=== PATIENT | male | born 1940 | race Two or more races ===

== ENCOUNTER 2017-07-21 10:32 | Inpatient (IN) | payer MEDICAID, OTHER ==
[~2017-07-21] VITALS: Ht 172.7 cm; Wt 77.0 kg
[2017-07-21] MEDS ORDERED: SODIUM CHLORIDE 0.9% 1,000 ML IV ONE (10:54)
[2017-07-21] MEDS ORDERED: ASPirin 81 mg TAB PO ONE (11:00)
[2017-07-21 11:14] LABS: Basophils # (auto) 0.1 uL; Basophils % (auto) 0.8 % (0.0-2.0); Eosinophils # (auto) 0.1 uL; Eosinophils % (auto) 0.8 % (0.0-7.0); Hematocrit 45.2 % (41.0-53.0); Hemoglobin 14.8 g/dL (13.5-17.5); Lymphocytes # (auto) 2.9 uL; Lymphocytes % (auto) 28.1 % (10.0-50.0); Mean Corpuscular Hgb Conc. 32.7 g/dL (32.0-36.0); Mean Corpuscular Volume 88.8 fL (80.0-100.0); Monocytes # (auto) 0.9 uL; Monocytes % (auto) 8.5 % (0.0-12.0); Neutrophils # (auto) 6.5 uL; Neutrophils % (auto) 61.8 % (37.0-80.0); Nucleated Red Blood Cells % 0.1 %; Platelet Count (auto) 220 10^3/uL (140-450); Red Blood Cells 5.08 10^6/uL (4.5-5.90); Red Cell Distribution Width 14.8 % (11.8-14.3); White Blood Cell 10.4 10^3/uL (4.4-10.8)
[2017-07-21 11:33] LABS: Alanine Aminotransferase 19 U/L (16-61); Albumin 3.5 g/dL (3.4-5.0); Anion Gap 7 (5-15); Aspartate Aminotransferase 22 U/L (15-37); BUN/Creatinine Ratio 14.4; Blood Urea Nitrogen 17 mg/dL (7-18); Calcium 8.6 mg/dL (8.5-10.1); Carbon Dioxide 26 mmol/L (21-32); Chloride 105 mmol/L (98-107); GFR African American 77 mL/min; GFR Non-African American 63 mL/min; Glucose 94 mg/dL (74-106); Magnesium 2.4 mg/dL (1.6-2.6); Potassium 4.6 mmol/L (3.5-5.1); Sodium 138 mmol/L (136-145)
[2017-07-21 11:35] LABS: INR 1.08 (0.9-1.15); Partial Thromboplastin Time 30.3 sec (22.64-33.71); Prothrombin Time 11.8 sec (9.37-12.3)
[2017-07-21 11:38] LABS: Alkaline Phosphatase 76 U/L (45-117); Bilirubin, Total 0.5 mg/dL (0.2-1.0); Total Protein 7.9 g/dL (6.4-8.2)
[2017-07-21] MEDS ORDERED: NITROGLYCERIN 0.4 MG SL TAB SL PRN ×2 (14:15)
[2017-07-21] MEDS ORDERED: LORazepam 0.5 MG TAB PO PRN (14:15)
[2017-07-21] MEDS ORDERED: MORPHINE SULFATE 4 MG/ML SYR/VIAL IV PRN ×2 (14:15)
[2017-07-21] MEDS ORDERED: ZOLPIDEM TARTRATE 5 MG TAB PO PRN (14:15)
[2017-07-21] MEDS ORDERED: ONDANSETRON HCL 4 MG/2 ML VIAL IV PRN (14:15)
[2017-07-21] MEDS ORDERED: ACETAMINOPHEN 325 MG TAB PO PRN (14:15)
[2017-07-21] MEDS ORDERED: ALUM & MAG HYDROX-SIMETH LIQ(MAALOX) 30 ML PO ONE (14:15)
[2017-07-21] MEDS: CARVEDILOL 3.125 MG TAB PO SCH ×2 (14:45→22:17)
[2017-07-21] MEDS: CLOPIDOGREL BISULFATE 75 MG TAB PO SCH (15:08)
[2017-07-21] MEDS: ENALAPRIL MALEATE 2.5 MG TAB PO SCH ×2 (15:08→22:18)
[2017-07-21 20:30] VITALS: BP 152/72
[2017-07-21 22:00] VITALS: BP 152/71
[2017-07-21] MEDS: SODIUM CHLOR 0.9% PF (SALINE LOCK) 10ML VIAL/SYR IV SCH (22:16)
[2017-07-21] MEDS: ATORVASTATIN 20 MG TAB PO SCH (22:17)
[2017-07-22] VITALS (7 sets, daily range): BP systolic 101–154; BP diastolic 65–73
[2017-07-22 05:44] LABS: Basophils # (auto) 0.1 uL; Basophils % (auto) 0.7 % (0.0-2.0); Eosinophils # (auto) 0.1 uL; Eosinophils % (auto) 1.6 % (0.0-7.0); Hematocrit 41.1 % (41.0-53.0); Hemoglobin 13.6 g/dL (13.5-17.5); Lymphocytes % (auto) 33.7 % (10.0-50.0); Mean Corpuscular Hemoglobin 29.5 pg (28.0-32.0); Mean Corpuscular Hgb Conc. 33.1 g/dL (32.0-36.0); Mean Corpuscular Volume 89.1 fL (80.0-100.0); Monocytes # (auto) 0.9 uL; Neutrophils # (auto) 4.9 uL; Nucleated Red Blood Cells % 0.1 %; Platelet Count (auto) 165 10^3/uL (140-450); Red Blood Cells 4.62 10^6/uL (4.5-5.90); Red Cell Distribution Width 14.5 % (11.8-14.3)
[2017-07-22] MEDS: SODIUM CHLOR 0.9% PF (SALINE LOCK) 10ML VIAL/SYR IV SCH ×3 (05:59→22:40)
[2017-07-22 06:27] LABS: Alanine Aminotransferase 15 U/L (16-61); Albumin 3.1 g/dL (3.4-5.0); Alkaline Phosphatase 69 U/L (45-117); Anion Gap 9 (5-15); Aspartate Aminotransferase 16 U/L (15-37); BUN/Creatinine Ratio 15.6; Bilirubin, Total 0.8 mg/dL (0.2-1.0); Blood Urea Nitrogen 19 mg/dL (7-18); Calcium 8.3 mg/dL (8.5-10.1); Carbon Dioxide 23 mmol/L (21-32); Chloride 107 mmol/L (98-107); Cholesterol 182 mg/dL (< 200); GFR African American 74 mL/min; GFR Non-African American 61 mL/min; Glucose 80 mg/dL (74-106); HDL Cholesterol 34 mg/dL (40-59); LDL Cholesterol 131 mg/dL (< 100); Magnesium 2.5 mg/dL (1.6-2.6); Potassium 3.9 mmol/L (3.5-5.1); Sodium 139 mmol/L (136-145); Total Protein 6.8 g/dL (6.4-8.2); Triglycerides 197 mg/dL (< 150)
[2017-07-22] MEDS: ASPirin 81 mg TAB PO SCH (11:16)
[2017-07-22] MEDS: CLOPIDOGREL BISULFATE 75 MG TAB PO SCH (11:18)
[2017-07-22] MEDS: CARVEDILOL 3.125 MG TAB PO SCH ×2 (11:18→22:34)
[2017-07-22] MEDS: ENALAPRIL MALEATE 2.5 MG TAB PO SCH ×2 (11:18→22:35)
[2017-07-22] MEDS: DOCUSATE SOD 100 MG CAP PO SCH (11:19)
[2017-07-22] MEDS ORDERED: ADENOSINE 65 MG in GIVE UN-DILUTED 0 ML IV ONE (14:30)
[2017-07-22 20:06] LABS: Urine Bacteria NONE SEEN /hpf (None Seen); Urine Blood TRACE /uL (Negative); Urine Mucus FEW (None Seen); Urine Specific Gravity 1.021 (1.001-1.035); Urine WBC 1 /hpf (0 - 3)
[2017-07-22] MEDS: ATORVASTATIN 20 MG TAB PO SCH (22:35)
[2017-07-23 05:00] VITALS: BP 114/66
[2017-07-23 09:00] VITALS: BP 127/69
[2017-07-23] MEDS: DOCUSATE SOD 100 MG CAP PO SCH (09:57)
[2017-07-23] MEDS: CLOPIDOGREL BISULFATE 75 MG TAB PO SCH (09:57)
[2017-07-23] MEDS: ASPirin 81 mg TAB PO SCH (09:57)
[2017-07-23] MEDS: CARVEDILOL 3.125 MG TAB PO SCH ×2 (09:58→21:41)
[2017-07-23] MEDS: ENALAPRIL MALEATE 2.5 MG TAB PO SCH ×2 (09:59→21:41)
[2017-07-23 13:00] VITALS: BP 107/61
[2017-07-23 16:27] VITALS: BP 121/67
[2017-07-23] MEDS: SODIUM CHLOR 0.9% PF (SALINE LOCK) 10ML VIAL/SYR IV SCH ×3 (18:47→21:42)
[2017-07-23] MEDS: ATORVASTATIN 20 MG TAB PO SCH (21:40)
[2017-07-23 22:00] VITALS: BP 121/45
[2017-07-24 05:48] VITALS: BP 115/66
[2017-07-24] MEDS: SODIUM CHLOR 0.9% PF (SALINE LOCK) 10ML VIAL/SYR IV SCH (06:05)
[2017-07-24 09:00] VITALS: BP 129/60
[2017-07-24] MEDS: CLOPIDOGREL BISULFATE 75 MG TAB PO SCH (09:57)
[2017-07-24] MEDS: CARVEDILOL 3.125 MG TAB PO SCH (09:57)
[2017-07-24] MEDS: ASPirin 81 mg TAB PO SCH (09:58)
[2017-07-24] MEDS: ENALAPRIL MALEATE 2.5 MG TAB PO SCH (09:58)
[2017-07-24] MEDS: DOCUSATE SOD 100 MG CAP PO SCH (09:58)
[2017-07-24] MEDS ORDERED: ISOSORBIDE MONONITRATE 60 MG TAB PO ONE (11:45)
[2017-07-24] MEDS ORDERED: amLODIPine BESYLATE 5 MG TAB PO ONE (11:45)
[2017-07-24] MEDS ORDERED: METOPROLOL TARTRATE 50 MG TAB PO ONE (11:45)
[2017-07-24 13:00] VITALS: BP 98/61
[2017-07-24 14:13] VITALS: BP 98/61
[2017-07-24 15:58] VITALS: BP 98/61
[2017-07-24] MEDS ORDERED: METOPROLOL TARTRATE 50 MG TAB PO SCH (22:00)
[2017-07-25] MEDS ORDERED: ISOSORBIDE MONONITRATE 60 MG TAB PO SCH (10:00)
[2017-07-25] MEDS ORDERED: amLODIPine BESYLATE 5 MG TAB PO SCH (10:00)
== END 2017-07-24 14:15 | disposition home or self-care (01) | DRG 198 ==
LOC: ER 10:32 → TELE 10:33 → TELE-WESTW 20:42
PROVIDERS: ADMIT Internal Medicine; ATTEND Internal Medicine Pulmonary Disease
DX: I20.9 Angina pectoris, unspecified (principal); J44.9 Chronic obstructive pulmonary disease, unspecified; E44.1 Mild protein-calorie malnutrition; I12.9 Hypertensive chronic kidney disease with stage 1 through stage 4 chronic kidney disease, or unspecified chronic kidney disease; N18.2 Chronic kidney disease, stage 2 (mild); J98.11 Atelectasis; E78.5 Hyperlipidemia, unspecified; F17.210 Nicotine dependence, cigarettes, uncomplicated; I70.0 Atherosclerosis of aorta; I99.8 Other disorder of circulatory system; I25.2 Old myocardial infarction; Z68.25 Body mass index [BMI] 25.0-25.9, adult
CPT/HCPCS: 36415; 71045; 80053; 80061; 81001; 83735; 83880; 84443; 84484; 85025; 85610; 85730; 93005; 93017; 93306; 94761; 96360; J0153